=== PATIENT | female | born 1960 | race Caucasian/White ===

== ENCOUNTER 2020-04-25 20:37 | Emergency (ER) | payer BC, SELFPAY ==
--- NOTE | ~2020-04-25 | XR_ITS ---
XR thoracic spine 3V 04/25/2020 22:20 Indication: Mid back pain Procedure: 3 views of the thoracic spine Comparison: No prior studies for comparison. Findings: Mild dextrocurvature of the thoracic spine. Vertebral body heights are maintained. No acute fracture or traumatic malalignment. Pedicles intact. No paraspinal soft tissue abnormality. Impression: 1: No acute abnormality of the thoracic spine. Reviewed, dictated and finalized at location A. Impression: 1: No acute abnormality of the thoracic spine.
--- NOTE | ~2020-04-25 | XR_ITS ---
XR lumbar spine 2-3V 04/25/2020 22:20 Indication: Low back pain Procedure: 3 views lumbar spine Comparison: No prior studies for comparison. Findings: There is mild superior endplate compression deformity of L1, age indeterminate. No signific ant disc narrowing. No evidence for spondylolisthesis. There are cholecystectomy clips. Impression: 1: Mild superior endplate compression deformity of L1, age indeterminate. Reviewed, dictated and finalized at location A. Impression: 1: Mild superior endplate compression deformity of L1, age indeterminate.
[2020-04-25 20:44] VITALS: BP 153/83; PULSE 75; RESP 15; TEMP 37.1; O2SAT 99
[2020-04-25 21:46] LABS: Add Urine Microscopic? YES; Appearance Urine Clear (Clear); Bacteria Urine Trace /hpf; Bilirubin Urine Negative (Negative); Blood Urine Negative (Negative); Color Urine Colorless (Yellow); Glucose Urine UA Negative (Negative); Ketones Urine Negative (Negative); Leukocyte Esterase Ur 2+ LEU/UL (Negative); Mucus Urine Rare /lpf; Nitrate Urine Negative (Negative); Protein Urine Negative (Negative); RBC Urine 0-2 /hpf (0-2); Specific Grav Ur 1.005 (1.001-1.035); Squamous Epithelial Cell Urine Rare /hpf (Few); Urobilinogen Urine Negative mg/dL (<2.0)
--- NOTE | 2020-04-25 23:21 | ED.BACK ---
HPI - Back Pain/Injury General Chief Complaint: Back Pain/Injury Stated Complaint: flank pain Time Seen by Provider: 04/25/20 21:37 History of Present Illness HPI Narrative: Patient is a 59-year-old female who presents ER with back pain. Reports she has some chronic back pain for which she sees a chiropractor for and she has been getting adjustments. She also has history of a small disc herniation in her upper thoracic spine that did not require intervention. She has no new trauma to her back and no exacerbating symptoms such as heavy lifting. Reports over the last couple days she has some right low back pain that radiates down her right leg when she sits down. It is better when she stands up. She has not been taking pain medication. Reports also has occasional bloating in her upper abdomen and pain between her scapulas bilaterally. No exertional component. No chest pain. Occasionally will have burning along her rib cage bilaterally. Denies saddle anesthesia or urinary/fecal incontinence. Related Data Allergies Allergy/AdvReac Type Severity Reaction Status Date / Time No Known Allergies Allergy Verified 11/11/12 09:55 Review of Systems Review of Systems: All systems reviewed & are unremarkable except as noted in HPI and below Constitutional: Constitutional: Denies fever(s) and Denies weakness ENT: Denies nasal congestion and Denies sore throat Cardiovascular: Cardiovascular: Denies chest pain, Denies rapid heart rate and Denies radiating jaw, neck or arm pain Respiratory: Respiratory: Denies cough and Denies dyspnea Gastrointestinal: Gastrointestinal: Denies abdominal pain, Reports bloating, Denies nausea and Denies vomiting Musculoskeletal: Musculoskeletal: Reports back pain and Denies muscle cramps Neurologic: Denies focal weakness and Reports numbness PMFSH Past Medical History Medical History (Updated 04/25/20 @ 23:34 by Rc Joshi MD) Anxiety Depression Herniated disc Surgical History Surgical History (Updated 04/25/20 @ 23:27 by Rc Joshi MD) History of cholecystectomy History of inguinal hernia repair Social History Social History Gender identity (if verbalized by the patient): Female Exam Narrative: Exam Narrative: GENERAL: Well-appearing, well-nourished, and in no acute distress. HEAD: Normocephalic, atraumatic. ENT: Mucous membranes moist. CHEST: Clear to auscultation. No respiratory distress. No evidence of shingles chest wall. HEART: Regular rate and rhythm. Normal peripheral pulses. ABDOMEN: Soft, nontender, nondistended. BACK: No reproducible midline tenderness of the thoracic or lumbar spine. No reproducible paraspinal muscular tenderness of the thoracic or left lumbar spine. There is mild discomfort near L5/S1 in the right paraspinal musculature without overt spasm. No visual evidence of trauma. EXTREMITIES: Normal range of motion. No edema. NEURO: Alert and oriented x3. Course Course Emergency Course: Informed of results. Discharge home with Medrol Dosepak and antispasmodics. Recommend follow-up with her PCP and possible need for MRI. Vital Signs Vital signs: Vital Signs Temperature 98.8 F 04/25/20 20:44 Pulse Rate 75 04/25/20 20:44 Respiratory Rate 15 04/25/20 20:44 Blood Pressure 153/83 H 04/25/20 20:44 Pulse Oximetry 99 04/25/20 20:44 Temperature 98.8 F 04/25/20 20:44 Pulse Rate 75 04/25/20 20:44 Respiratory Rate 15 04/25/20 20:44 Blood Pressure 153/83 H 04/25/20 20:44 Pulse Oximetry 99 04/25/20 20:44 MDM - Back Pain/Injury Lab Data Labs: Lab Results 04/25/20 Range/Units 21:36 Urine Color Colorless (Yellow) Urine Appearance Clear (Clear) Urine pH 6.0 (5.0-9.0) Ur Specific [place] 1.005 (1.001-1.035) Urine Protein Negative (Negative) mg/dL Urine Glucose (UA) Negative (Negative) mg/dL Urine Ketones Negative (Negative) mg/dL Ur Blood (Man) Negative (Negative) Urine
== END 2020-04-25 23:42 | disposition home or self-care (01) ==
PROVIDERS: Emergency Provider Emergency Medicine; PCP Nurse Practitioner Adult Health
DX: M54.41 Lumbago with sciatica, right side (principal)
CPT/HCPCS: 72072; 72100; 81001; 87086; 99283

== ENCOUNTER 2021-02-12 15:41 | Emergency (ER) | payer BC, SELFPAY ==
[2021-02-12 15:46] VITALS: BP 133/77; PULSE 77; RESP 16; TEMP 36.4; O2SAT 98
--- NOTE | 2021-02-12 16:06 | ED.WOUNDLAC ---
HPI - Wound/Laceration General Chief Complaint: Wound/Laceration Stated Complaint: spider bite Time Seen by Provider: 02/12/21 15:57 History of Present Illness HPI narrative: Patient is a 60-year-old female who presents ER with concerns for possible bite to her right shoulder. Patient noticed bumps yesterday minutes progressed today to 2 different areas. One area on her right arm looks like it has a target so she is concerned she had a spider. No fevers or chills or sweats. No drainage. The areas are itchy. She has no blisters or ulcers. No extension around the chest or down the arm. Related Data Home Medications Medication Instructions Recorded Confirmed amlodipine 02/12/21 02/12/21 Allergies Allergy/AdvReac Type Severity Reaction Status Date / Time No Known Allergies Allergy Verified 02/12/21 15:49 Review of Systems Constitutional: Constitutional: Denies chills and Denies fever(s) Integumentary/Breasts: Skin/Breast: Reports erythema, Reports rash and Denies skin ulcer PMFSH Past Medical History Medical History (Updated 02/12/21 @ 16:13 by Rc Joshi MD) Anxiety Depression Herniated disc Surgical History Surgical History (Updated 04/25/20 @ 23:27 by Rc Joshi MD) History of cholecystectomy History of inguinal hernia repair Social History Social History Gender identity (if verbalized by the patient): Female Exam Narrative: Exam Narrative: GENERAL: Well-appearing, well-nourished, and in no acute distress. HEAD: Normocephalic, atraumatic. EXTREMITIES: Normal range of motion. No edema. SKIN: Warm, dry. Follicular irritation to the right shoulder and 5 different spots. Largest area is 1/2 cm by half centimeter with slight redness. No fluctuant abscess. Right arm with 1 small irritated hair follicles well but does have some redness extending outwards but is nontender and not indurated. NEURO: Alert and oriented x3. PSYCH: Normal mood and affect. Course Course Emergency Course: No evidence of shingles. Will treat as folliculitis with oral and topical antibiotics. Patient can use bacitracin at home and will give her Keflex. Vital Signs Vital signs: Vital Signs Temperature 97.6 F 02/12/21 15:46 Pulse Rate 77 02/12/21 15:46 Respiratory Rate 16 02/12/21 15:46 Blood Pressure 133/77 02/12/21 15:46 Pulse Oximetry 98 02/12/21 15:46 Temperature 97.6 F 02/12/21 15:46 Pulse Rate 77 02/12/21 15:46 Respiratory Rate 16 02/12/21 15:46 Blood Pressure 133/77 02/12/21 15:46 Pulse Oximetry 98 02/12/21 15:46 Discharge Plan Discharge Clinical Impression: Folliculitis Patient Disposition: Home, Self-Care Condition: Stable Instructions: Antibiotic Form, Folliculitis (ED) Additional Instructions: Return to the ER if you have worsening pain, your bump is enlarging, you have fever over 100.4 ?F, you have additional concerns. Prescriptions: New cephalexin 500 mg capsule 500 mg PO Q12H Qty: 20 RF: 0 No Action amlodipine 5 mg tablet RF: 0 Follow-up/Referrals: Evangelist,BRYANT Joe [Primary Care Provider] - 1 Week
== END 2021-02-12 16:53 | disposition home or self-care (01) ==
LOC: ANHED 16:36
PROVIDERS: Emergency Provider Emergency Medicine; PCP Nurse Practitioner Adult Health
DX: L73.9 Follicular disorder, unspecified (principal)
CPT/HCPCS: 99283

== ENCOUNTER 2022-01-24 09:10 | Outpatient (CLI) | payer BC, SELFPAY ==
--- NOTE | 2022-01-24 | EST_ITS ---
Patient Info Name: Aissatou Douglass Age: 61 years : 1960 Gender: Female Ht: 63 in Wt: 147 lbs BSA: 1.74 m2 HR: 65 bpm BP: 157 / 90 mmHg Heart Rhythm: Sinus Rhythm Exam Date: 01/24/2022 10:57 AM Exam Location: [facility] Stress Patient Status: Outpatient Admit Date: 01/24/2022 Staff Ordering Physician: Evangelist, Tatyana HURTADO Attending Provider: Evangelist, Tatyana HURTADO Exercise Technologist: Luz Maria Martinez CT Exercise Physician: Mark Wills DO Exam Type: CA stress test treadmill w NM Study Info Indications R07.9 - Chest pain, unspecified A regadenoson stress test was performed. Summary 1. 1. Negative Edin exercise stress test for ischemic ST changes by ECG criteria. 2. 2. Good functional capacity, achieving 11 METs of workload. 3. 3. Baseline hypertension. 4. 4. Appropriate HR response to exercise. 5. 5. Appropriate HR recovery at 1 minute post exercise. 6. 6. Nuclear scan to follow and will be reported separately. Please correlate with it. 7. 7. Patient informed of the above results. Protocol: [place]in Stress ECG Details Stage: REST Duration (min): 4 min : 39 sec Speed (mph): 0.0 Grade (%): 0 HR (bpm): 63 SBP (mmHg): 157 DBP (mmHg): 97 METS: --- Stage: REST Duration (min): 7 min : 14 sec Speed (mph): 0.0 Grade (%): 0 HR (bpm): 70 SBP (mmHg): 157 DBP (mmHg): 97 METS: --- Stage: STAGE 1 Duration (min): 1 min : 0 sec Speed (mph): 1.7 Grade (%): 10 HR (bpm): 95 SBP (mmHg): 157 DBP (mmHg): 97 METS: --- Stage: STAGE 1 Duration (min): 2 min : 0 sec Speed (mph): 1.7 Grade (%): 10 HR (bpm): 112 SBP (mmHg): 157 DBP (mmHg): 97 METS: --- Stage: STAGE 1 Duration (min): 3 min : 0 sec Speed (mph): 1.7 Grade (%): 10 HR (bpm): 114 SBP (mmHg): 176 DBP (mmHg): 89 METS: --- Stage: STAGE 2 Duration (min): 1 min : 0 sec Speed (mph): 2.5 Grade (%): 12 HR (bpm): 118 SBP (mmHg): 176 DBP (mmHg): 89 METS: --- Stage: STAGE 2 Duration (min): 2 min : 0 sec Speed (mph): 2.5 Grade (%): 12 HR (bpm): 115 SBP (mmHg): 170 DBP (mmHg): 88 METS: --- Stage: STAGE 2 Duration (min): 3 min : 0 sec Speed (mph): 2.5 Grade (%): 12 HR (bpm): 116 SBP (mmHg): 170 DBP (mmHg): 88 METS: --- Stage: STAGE 3 Duration (min): 1 min : 0 sec Speed (mph): 3.4 Grade (%): 14 HR (bpm): 124 SBP (mmHg): 183 DBP (mmHg): 90 METS: --- Stage: STAGE 3 Duration (min): 2 min : 0 sec Speed (mph): 3.4 Grade (%): 14 HR (bpm): 126 SBP (mmHg): 183 DBP (mmHg): 90 METS: --- Stage: STAGE 3 Duration (min): 3 min : 0 sec Speed (mph): 3.4 Grade (%): 14 HR (bpm): 142 SBP (mmHg): 179 DBP (mmHg): 97 METS: --- Stage: STAGE 4 Duration (min): 0 min : 35 sec Speed (mph): 4.2 Grade (%): 16 HR (bpm): 147
--- NOTE | ~2022-01-24 | NM_ITS ---
EXAMINATION: NM stress w perf spect multi DATE: 01/24/2022 12:21 INDICATION: Atypical chest pain TECHNIQUE: Rest images were obtained following intravenous administration of 9.9 mCi Tc99m tetrofosmi n (AssertID). The patient performed an exercise activity. At peak exercise, 29.4 mCi Tc99m tetrofosmin ([employer]) was administered intravenously, and stress images were obtained. Data was reconstructed in to short axis and horizontal and vertical long axis SPECT images. Gated SPECT images were also obtain ed. COMPARISON: None. FINDINGS: There is normal left ventricular perfusion without definite evidence of reversible or fixed perfusion abnormality to suggest ischemia or infarction. There is normal left ventricular chamber size, wall motion and ejection fraction. Left ventricular ejection fraction measures >70%. IMPRESSION: 1. Normal myocardial perfusion at rest and during stress. 2. Left ventricular ejection fraction measuring >70%. Reviewed, dictated and finalized at location B.
== END 2022-01-24 09:11 | disposition home or self-care (01) ==
PROVIDERS: PCP Nurse Practitioner Adult Health; Visit Provider Nurse Practitioner Adult Health
DX: R07.89 Other chest pain (principal)
CPT/HCPCS: 78452; 93017; A9502

== ENCOUNTER 2023-04-29 10:03 | Outpatient (CLI) | payer OTHER, SELFPAY ==
[2023-04-29 18:36] LABS: Basophils Percent Auto 0.6 % (0.2-1.2); Eosinophils Absolute Auto 0.1 K/mm3 (0-0.3); Eosinophils Percent Auto 1.8 % (0-4.4); Hematocrit 40.4 % (37.0-47.0); Immature Granulocyte Absolute 0.02 K/mm3 (0.00-0.031); Immature Granulocyte Percent A 0.4 % (0-0.5); Lymphocytes Absolute Auto 2.53 K/mm3 (0.9-3.2); Lymphocytes Percent Auto 46.6 % (18.3-44.2); Mean Corpuscular HGB Conc 32.2 g/dl (32-36); Mean Corpuscular Hemoglobin 31.7 pg (26-34); Mean Corpuscular Volume 98.5 fl (80-100); Mean Platelet Volume 9.7 fl (7.4-10.4); Monocytes Absolute Auto 0.5 K/mm3 (0.1-0.6); Neutrophils Absolute Auto 2.3 K/mm3 (1.3-6.7); Neutrophils Percent Auto 41.6 % (45.5-73.1); Platelet Count Result 301 k/mm3 (150-375); Red Cell Distribution Width 13.1 % (11.5-14.5); White Blood Count 5.4 K/mm3 (4.5-10.0)
[2023-04-29 19:17] LABS: Alanine Aminotransferase 20 U/L (6-35); Albumin Level 4.7 g/dL (3.5-5.1); Alkaline Phosphatase 80 U/L (38-126); Anion Gap 4 mmol/L (8-16); Aspartate Amino Transferase 67 U/L (14-36); Bilirubin,Total 0.7 mg/dL (0.2-1.3); Blood Urea Nitrogen 17 mg/dL (7-17); Calcium 9.3 mg/dL (8.4-10.2); Carbon Dioxide 32 mmol/L (22-30); Chloride 101 mmol/L (98-107); Cholesterol 226 mg/dL (0-200); Estimated Glomerular Filt Rate > 60; Glucose 82 mg/dL (65-110); HDL Direct 104 mg/dL; Potassium 4.2 mmol/L (3.4-5.0); Sodium 137 mmol/L (137-145); Triglycerides 70 mg/dL (<150)
[2023-04-29 19:29] LABS: LDL Cholesterol Direct 88 mg/dL
[2023-04-29 20:19] LABS: Free T4 Free Thyroxine 0.85 ng/mL (0.78-2.19)
[2023-04-29 20:25] LABS: Folic Acid > 20.0 ng/mL (2.76->20)
[2023-05-02 04:39] LABS: Thyroid Peroxidase Antibodies <1 IU/mL (<9)
== END 2023-04-29 10:04 | disposition home or self-care (01) ==
LOC: ANHBWCLAB 10:05
PROVIDERS: PCP Nurse Practitioner Adult Health; Visit Provider Nurse Practitioner Adult Health
DX: L65.9 Nonscarring hair loss, unspecified (principal); I10 Essential (primary) hypertension; Z00.00 Encounter for general adult medical examination without abnormal findings
CPT/HCPCS: 36415; 80053; 80061; 82607; 82746; 84439; 84443; 85025; 86376

== ENCOUNTER 2024-02-20 09:29 | Outpatient (CLI) | payer OTHER, SELFPAY ==
--- NOTE | ~2024-02-20 | XR_ITS ---
EXAMINATION: XR chest 2V 02/20/2024 09:50 INDICATION: Chest pain PROCEDURE: 2 view chest COMPARISON: 12/17/2011 FINDINGS: The lungs are clear. The cardiomediastinal silhouette is within normal limits. There are no pleural effusions. There is no pneumothorax suspected. IMPRESSION: 1: NO ACUTE CARDIOPULMONARY DISEASE. Reviewed, dictated and finalized at location B.
[2024-02-20 19:09] LABS: Hematocrit 41.7 % (37.0-47.0); Mean Corpuscular HGB Conc 31.2 g/dl (32-36); Mean Corpuscular Volume 99.3 fl (80-100); Mean Platelet Volume 10.1 fl (7.4-10.4); Platelet Count Result 315 k/mm3 (150-375); Red Cell Distribution Width 13.5 % (11.5-14.5); White Blood Count 6.8 K/mm3 (4.5-10.0)
[2024-02-20 19:22] LABS: Alanine Aminotransferase 19 U/L (6-35); Albumin Level 4.7 g/dL (3.5-5.1); Alkaline Phosphatase 73 U/L (38-126); Anion Gap 6 mmol/L (4-12); Aspartate Amino Transferase 56 U/L (14-36); Bilirubin,Total 0.6 mg/dL (0.2-1.3); Blood Urea Nitrogen 16 mg/dL (7-17); Calcium 9.7 mg/dL (8.4-10.2); Carbon Dioxide 30 mmol/L (22-30); Chloride 103 mmol/L (98-107); Cholesterol 213 mg/dL (0-200); Estimated Glomerular Filt Rate > 60; Glucose 92 mg/dL (65-110); HDL Direct 83 mg/dL; Sodium 139 mmol/L (137-145); Triglycerides 78 mg/dL (<150)
[2024-02-20 19:28] LABS: Appearance Urine Clear (Clear); Bilirubin Urine Negative (Negative); Blood Urine Negative (Negative); Color Urine Yellow (Yellow); Glucose Urine UA Negative (Negative); Ketones Urine Negative (Negative); Leukocyte Esterase Ur Negative LEU/UL (Negative); Nitrate Urine Negative (Negative); Protein Urine Negative (Negative); Urobilinogen Urine 0.2 mg/dL (<2.0); pH Urine 6.5 (5.0-9.0)
[2024-02-20 19:29] LABS: Add Urine Microscopic? NO
[2024-02-20 19:35] LABS: LDL Cholesterol Direct 107 mg/dL
[2024-02-20 20:36] LABS: Folic Acid > 20.0 ng/mL (2.76->20)
== END 2024-02-20 09:30 | disposition home or self-care (01) ==
PROVIDERS: PCP Nurse Practitioner Adult Health; Visit Provider Nurse Practitioner Adult Health
DX: Z13.9 Encounter for screening, unspecified (principal); R39.9 Unspecified symptoms and signs involving the genitourinary system; R07.89 Other chest pain
CPT/HCPCS: 36415; 71046; 80053; 80061; 81003; 82607; 82746; 84443; 85027

== ENCOUNTER 2024-04-09 10:14 | Outpatient (CLI) | payer OTHER, SELFPAY ==
--- NOTE | ~2024-04-09 | US_ITS ---
EXAMINATION: US pelvic complete w TV INDICATION: Pelvic pain Comparison:No prior studies for comparison. TECHNIQUE: Multiple transabdominal and endovaginal sonographic images of the pelvis performed. FINDINGS: The uterus measures 5.2 x 3.9 x 2.2 cm. There is a small uterine fibroid posteriorly measur ing 1 cm. There are calcifications of the cervix. The endometrial complex measures 5 mm. The ovaries are not visualized. There is no free fluid in the pelvis. There are no abnormal masses seen on either side. IMPRESSION: 1. Small uterine fibroid posteriorly measuring 1 cm. 2: Thickened endomtrial complex. The differential diagnosis includes endometrial hyperplasia, polyp a nd carcinoma. Biopsy is recommended. Reviewed, dictated and finalized at location B. IMPRESSION: 1. Small uterine fibroid posteriorly measuring 1 cm. 2: Thickened endomtrial complex. The differential diagnosis includes endometria l hyperplasia, polyp and carcinoma. Biopsy is recommended.
== END 2024-04-09 10:15 ==
PROVIDERS: PCP Nurse Practitioner Adult Health; Visit Provider Student in an Organized Health Care Education/Training Program
DX: R10.2 Pelvic and perineal pain (principal); D25.9 Leiomyoma of uterus, unspecified
CPT/HCPCS: 76830; 76856

== ENCOUNTER 2024-05-25 13:48 | Outpatient (CLI) | payer OTHER, SELFPAY ==
--- NOTE | ~2024-05-25 | XR_ITS ---
XR abdomen/kub 1V Ordering provider: Tatyana Blanca APRN History: . R14.0 - Abdominal distension (gaseous) . Comparison: None. FINDINGS: BOWEL: Nonobstructive bowel gas pattern. ORGANOMEGALY: None. SIGNIFICANT PATHOLOGIC CALCIFICATIONS: None. OTHER: No free air is seen under the diaphragm. IMPRESSION: NO ACUTE ABDOMINAL FINDINGS. Reviewed, dictated and finalized at location A.
== END 2024-05-25 13:49 | disposition home or self-care (01) ==
LOC: ANHBWCIMG 13:52
PROVIDERS: PCP Nurse Practitioner Adult Health; Visit Provider Nurse Practitioner Adult Health
DX: R14.0 Abdominal distension (gaseous) (principal)
CPT/HCPCS: 74018

== ENCOUNTER 2025-03-06 08:54 | Emergency (ER) | payer OTHER, SELFPAY ==
--- OUTSIDE RECORDS SUMMARY | 2025-03-06 08:57 | XMS_ITS | Clinical Summary ---
Author Organization [facility] Address [address] [place] [address] Care Team Providers Care Campground Caretaker Name Role Phone Olesya Sweeney MD Primary Care Provider Source Comments [facility],non-owned Affiliates and Associated Physician Practices is amultiple site organization consisting of ambulatory clinics and hospital sitesin [place], [place], [place] and [place]. This disclosure is being madepursuant to the Care Everywhere program and may not contain all information available regarding this patient. Last updated 18.[facility] Social History Tobacco Use Types Packs/Day Years Used Date Smoking Tobacco: Never Assessed Comments Unknown Sex and Gender Information Value Date Recorded Sex Assigned at Not on file Legal Sex Female 3:43 PM CDT Gender Identity Not on file Sexual Orientation Not on file Plan of Treatment Health Maintenance Due Date Last Done Comments COLOGUARD (AGES 45-75) - COL ON CA SCREENING 1960 COLON MONITORING 1960 COLONOSCOPY - COLON CA SCREENING 1962 CT COLONOGRAPHY - COLON CA SCREENING 1960 Colorectal Cancer Screening 1960 FIT - COLON CA SCREENING 1960 FLEX SIG - COLON CA SCREENING 1960 LIPID TESTING 1960 MAMMOGRAM 1960 PAP SMEAR 1960 HIV SCREENING 1977 HEPATITIS C SCREENING 09/26/1980 DTAP/TDAP/TD VACCINES (1 - Tdap) 1981 PNEUMOCOCCAL VACCINE 50+ (1 of 1 - PCV) 2012 ZOSTER VACCINE (1 of 2) 2012 COVID-19 VACCINE (1 - 2023-2 5 season) 2024 DEPRESSION SCREENING 10/21/2024 INFLUENZA VACCINE (Season Ended) 2025 Respiratory Syncytial Virus (RSV) Vaccine Pt: or over 60 yrs (1 - 1-dose 75+ series) 2037 HEPATITIS B VACCINE Aged Out No longe r eligible based on patient's age to complete this topic HIB VACCINE Aged Out No longer eligi ble based on patient's age to complete this topic HPV VACCINE Aged Out No longer eligi ble based on patient's age to complete this topic MENINGOCOCCAL (Group B) VACC INE SHARED DECISION-MAKING Aged Out No longer eligibl e based on patient's age to complete this topic MENINGOCOCCAL GROUPS A/C/Y/W VACCINE Aged Out No longer eligible b ased on patient's age to complete this topic Care Teams Campground Caretaker Relationship Specialty Start Date End Date Olesya Sweeney MD [address] [place] [phone] PCP - General 07/03/22
--- OUTSIDE RECORDS SUMMARY | 2025-03-06 08:57 | XMS_ITS | Referral Summary ---
Author Organization [facility] [address] Address [address] [place] [id number] Care Team Providers Care Instructor Pilot Name Role Phone Tatyana Blanca NP Primary Care Provider [phone] Allergies Active Allergy Reactions Criticality Noted Date Comments Bupropion Other (See comments) Low 05/24/2022 Paroxetine Other (See comments) Low 05/24/2022 Medications amLODIPine (NORVASC) 5 mg tablet amlodipine 5 mg tablet Active escitalopram (LEXAPRO) 10 mg tablet 10 mg daily 6 Active omeprazole (PriLOSEC) 20 mg capsule TAKE 1 CAPSULE BY MOUTH ONCE DAILY FOR 30 DAYS 2 Active valACYclovir (VALTREX) 1 gram tablet Take 2 tabs (2000 mg) 2 times a days for 1 day. 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 Gender Identity Not on file Sexual Orientation Not on file Last Filed Vital Signs Vital Sign Reading Time Taken Comments Blood Pressure 146/88 02/09/2024 3:16 PM CDT Pulse 72 02/09/2024 3:05 PM CDT Temperature 36.7 C (98 F) 02/09/2024 3:05 PM CDT Respiratory Rate 16 02/09/2024 3:05 PM CDT Oxygen Saturation 99% 02/09/2024 3:05 PM CDT Inhaled Oxygen Concentration - - Weight 67.1 kg (148 lb) 02/09/2024 3:05 PM CDT Height 160 cm (5' 3 ) 02/09/2024 3:05 PM CDT Body Mass Index 26.22 02/09/2024 3:05 PM CDT Plan of Treatment Not on file Insurance IDPA Care Teams Instructor Pilot Relationship Specialty Start Date End Date Tatyana Blanca NP [address] [place] [address] [place] [address] PCP - General Nurse Practitioner 05/24/22
--- OUTSIDE RECORDS SUMMARY | 2025-03-06 08:57 | XMS_ITS | Clinical Summary ---
Author Organization [facility] Address [address] [place] [id number] Care Team Providers Care Stock Clipper Name Role Phone Tatyana Blanca BRYANT Primary Care Provider [phone] Family History Medical History Relation Comments Breast Cancer Neg Hx Social History Tobacco Use Types Packs/Day Years Used Date Smoking Tobacco: Never Assessed Comments Unknown Sex and Gender Information Value Date Recorded Sex Assigned at Not on file Legal Sex Female 7:07 PM CDT Gender Identity Not on file Sexual Orientation Not on file Plan of Treatment Health Maintenance Due Date Last Done Comments Cervical Cancer Screening Pa p Smear (Age 30 to 64) Every 3 Years 1960 Colorectal Cancer Screening Colonoscopy (10 Years) 1962 Annual Physical 1965 Hepatitis C 1980 DTaP, Tdap and Td Vaccines ( 1 - Tdap) 1981 Cervical Cancer Screening Pa p with HPV Testing (Age 30 to 64) Every 5 Years 1992 Cervical Cancer Screening wi th HPV 1992 Pneumococcal Vaccine: 50+ Years (1 of 1 - PCV) 2012 Zoster Vaccines (1 of 2) 2012 COVID-19 Vaccine ( - 2023-2 5 season) 2024 Mammogram Screening 01/12/2026 01/13/2024, 07/26/2022, 11/12/2019 RSV Immunization or 60+ Years (1 - 1-dose 75+ series) 2037 Meningococcal B Vaccine Aged Out No l onger eligible based on patient's age to complete this topic Meningococcal Vaccine Aged Out No krzysztof magaly eligible based on patient's age to complete this topic RSV Immunizations Under 20 Months Aged Out No longer eligible b ased on patient's age to complete this topic Procedures Procedure Name Priority Date/Time Associated Diagnosis Comments MG SCREENING W LOGAN EMILY DIGI Routine 01/13/2024 10:49 AM CDT Encounter for screening mammogram for malignant neoplasm of breast from Last 3 Months or Most Recently Relevant to Health Maintenance Results * MG SCREENING W LOGAN EMILY DIGI (01/13/2024 10:49 AM CDT) Anatomical Region Laterality Modality Breast Bilateral Mammography 01/13/2024 4:14 PM CDT Narrative 01/13/2024 4:18 PM CDT EXAMINATION: Digital bilateral screening mammogram with 3-D tomosynthesis EXAM DATE/TIME: 01/13/2024 10:35 AM REASON FOR EXAM: Screening Mammogram COMPARISON: 11/12/2019. Period 07/26/2022 Technique: Digital screening mammography of both breasts was performed in addition to 3-D Tomosynthesis technique. This study was read with the assistance of a computer-aided detection system. Tissue density: There are scattered areas of fibroglandular density. Findings: Stable benign appearing lymph nodes in the upper outer quadrants of both breasts. Benign calcifications. There is no new focal asymmetry, dominant mass lesion, area of skin thickening, or cluster of suspicious appearing calcifications in either breast to suggest malignancy. ===== IMPRESSION: ===== 1. Stable mammographic appearance with no new findings to suggest malignancy in either breast. Assessment: ACR BI-RADS 2 - BENIGN FINDING(S) Recommendation: 1:Routine Screening Bilateral Comments: Ordered By: SUSHIL FREEMAN Interpreted By: Tristian Wheeler, 01/13/2024 4:14 PM us Sushil Freeman MD MAMMO Final Result from Last 3 Months or Most Recently Relevant to Health Maintenance Care Teams Stock Clipper Relationship Specialty Start Date End Date Tatyana Blanca NP [address] [place] [id number] PCP - General NURSE PRACTITIONER 11/12/19
--- OUTSIDE RECORDS SUMMARY | 2025-03-06 08:57 | XMS_ITS | Encounter Summary ---
Author Organization [facility] Address [address] [place] [address] Care Team Providers Care Weed Cooking Operator Name Role Phone Olesya Sweeney MD Primary Care Provider [phone] Encounter Details Date Type Department Care Team (Late st Contact Info) Description 07/03/2022 Lab Requisition [facility] [address] [facility] [place] [address] Sriram Ayala MD [address] [place] [address] Social History Tobacco Use Types Packs/Day Years Used Date Smoking Tobacco: Never Assessed Comments Unknown Sex and Gender Information Value Date Recorded Sex Assigned at Not on file Legal Sex Female 3:43 PM CDT Gender Identity Not on file Sexual Orientation Not on file documented as of this encounter Plan of Treatment Not on file documented as of this encounter Procedures Procedure Name Priority Date/Time Associated Diagnosis Comments DERMATOPATHOLOGY Routine 07/02/2022 12:0 0 AM CDT documented in this encounter Results * DERMATOPATHOLOGY (07/02/2022 12:00 AM CDT) Case Report Dermatopathology Report Case: [id number] Authorizing Provider: Sriram Ayala MD Collected: 07/02/2022 12:00 AM Ordering Location: [facility] Received: 07/03/2022 03:49 PM Pathologist: Gabino Benton MD Specimen: Skin, left shoulder 12:10 PM CDT DERMATOPATHOLOGY LABORATORY Final Diagnosis Specimen A. SKIN, left shoulder: BASAL CELL CARCINOMA (C44.619) (see microscopic description and comment) 2 12:10 PM CDT DERMATOPATHOLOGY LABORATORY Clinical History [facility]. Path# [id number] 2 12:10 PM CDT DERMATOPATHOLOGY LABORATORY Gross Description Specimen A: Received is one formalin filled container labeled with the patient's name and designated left shoulder. The specimen consists of a shave biopsy measuring [id number]. Jar 0. 2 12:10 PM CDT DERMATOPATHOLOGY LABORATORY Microscopic Description Specimen A. SKIN, left shoulder: The specimen consists of aggregates of basaloid cells, located within the superficial dermis, with high nuclear to cytoplasmic ratio and peripheral palisading. COMMENT: The small size of the specimen limits subtyping of the lesion. 2 12:10 PM CDT DERMATOPATHOLOGY LABORATORY Disclaimer An external and internal positive and negative controls are appropriate for the histochemical, immunohistochemical and immunofluorescence stain(s) in this case (if any), except where stated explicitly. The performance characteristics of the stain(s) cited in this report were developed and its performance characteristic determined by the Dermatopathology Laboratory at [facility], directed by Dr. Sancho Benton. These tests need not be, and therefore are not, approved by the [place] Food and Drug Administration. The tests are used for clinical purposes. Billing Codes Specimen Charges Stain Charges 72043 1 2 12:10 PM CDT DERMATOPATHOLOGY LABORATORY Embedded Images 2 12:10 PM CDT DERMATOPATHOLOGY LABORATORY Pathology/Cytolog y TISSUE SPECIMEN FROM SKIN / Unknown 07/02/2022 07/03/2022 3:49 PM CDT Sriram Ayala MD LAB - PATHOLOGY/CYTOLOGY ORDER MEHNAZ Final Result DERMATOPATHOLOGY LABORATORY [facility] - Department of Dermatology [address], [address] [phone] documented in this encounter Visit Diagnoses Not on filedocumented in this encounter Care Teams Weed Cooking Operator Relationship Specialty Start Date End Date Olesya Sweeney MD [address] [id number] PCP - General 07/03/22 documented as of this encounter
--- OUTSIDE RECORDS SUMMARY | 2025-03-06 08:57 | XMS_ITS | Clinical Summary ---
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 Gender Identity Not on file Sexual Orientation Not on file Obstetrics History Last Filed Vital Signs Vital Sign Reading [...] 02/09/2024 3:05 PM CDT Plan of Treatment Health Maintenance Due Date Last Done Comments Breast Cancer Screening-Mammogram 1962 Cervical Cancer Screening 1962 Colon Cancer Screening-Colonoscopy 1962 Depression Screening 1962 Hepatitis C Screening 1962 Hepatitis B Screening 1980 Regular Well Visit/Exam 18-64 1980 Zoster Vaccine (1 of 2) 2012 Covid-19 Vaccine (3 - 2023-2 5 season) 2024 01/14/2021, 12/22/2020 Influenza Vaccine (#1) 2024 DTaP/Tdap/Td Vaccine (3 - Td or Tdap) 03/21/2026 03/21/2016, 07/26/2015 Pneumococcal vaccine <65 Aged Out No longer eligible based on patient's age to complete this topic Insurance IDPA Care Teams Senior Tax Accountant Relationship Specialty Start Date End Date Tatyana Blanca NP [facility] [place] [address] PCP - General Nurse Practitioner 05/24/22
--- OUTSIDE RECORDS SUMMARY | 2025-03-06 08:57 | XMS_ITS | Encounter Summary ---
Author Organization [facility] Address [address] [place] [address] Care Team Providers Care Paint Spray Tender Name Role Phone Tatyana Blanca NP Primary Care Provider [phone] Encounter Details Date Type Department Care Team (Late st Contact Info) Description 06/03/2017 Abstract [facility] CONVERSION [address] [place] [address] , Generic Conversion, Social History Tobacco Use Types Packs/Day Years Used Date Smoking Tobacco: Never Assessed Comments Unknown Sex and Gender Information Value Date Recorded Sex Assigned at Not on file Legal Sex Female 7:07 PM CDT Gender Identity Not on file Sexual Orientation Not on file documented as of this encounter Plan of Treatment Not on file documented as of this encounter Visit Diagnoses Not on filedocumented in this encounter Care Teams Paint Spray Tender Relationship Specialty Start Date End Date Tatyana Blanca NP [address] [place] [address] PCP - General NURSE PRACTITIONER 11/12/19 documented as of this encounter
--- OUTSIDE RECORDS SUMMARY | 2025-03-06 08:57 | XMS_ITS | Data Portability ---
Author Organization [facility] Address [address] [place] [address] Care Team Providers Care Learning Coordinator Name Role Phone [facility] Foreign Language Interpreter Assessment No assessment recorded. Plan of Treatment Reminders Order Date Submit Date Provider Last Modified By Organization Details Last Modified Time Details Appointments None recorded. Lab None recorded. Referral None recorded. Procedures None recorded. Surgeries None recorded. Imaging None recorded. Medication Orders Prometrium 100 mg capsule 2023 024 [facility] [address], [address], [address], 4 13:19:02 Vivelle-Dot 0.0375 mg/24 hr transdermal patch 2023 024 [facility] [address], [address], [address], 4 13:19:04 Estrace 0.5 mg tablet 2023 024 [facility] [address], [address], [address], 4 13:19:04 Estrace 0.01% (0.1 mg/gram) vaginal cream 2023 024 [facility] [address], [address], [address], 13:19:04 Patient TargetsNo targets recorded. Patient InstructionsNo instructions recorded. Reason for Referral None Reported. Procedures Surgical History Date Name Laterality Status Provider Name and Address Organization Details Recorded Time 4 Most Recent Mammogram completed [facility] [employer] 05/21/2024 12:08:16 2 Date of Last Pap Smear completed [facility] [facility] 05/21/2024 12:19:41 3 Date of Last Colonoscopy completed [facility] [employer] 05/21/2024 12:20:40 1 Endometrial Ablation completed [facility] [facility] 05/21/2024 12:33:04 7 ligation of bilateral fallopian tubes completed [facility] [employer] [facility] 05/21/2024 12:34:16 5 LEEP completed Dhaval Lobo MD [address] [place] [address], [phone] [employer] 05/21/2024 13:05:34 1 D & C completed [facility] [employer] 05/21/2024 12:35:18 Colonoscopy completed [facility] [facility] 05/21/2024 12:08:16 Gall bladder completed [facility] [employer] 05/21/2024 12:08:16 C Section completed [facility] [employer] 05/21/2024 12:08:16 hernia repair completed [facility] [employer] 05/21/2024 12:34:45 excision of ganglion cyst completed [facility] [employer] 05/21/2024 12:23:10 Imaging Results None recorded. Procedure Notes None recorded. Medical Equipment None Reported. Allergies No known drug allergies Medications Name Sig Start Date Stop Date Status Note LastModified by Organization Details LastModified Time valacyclovi r 1 gram tablet TAKE 2 TABLETS BY MOUTH TWICE DAILY FOR 1 DAY 05/21 completed Not Available Not Available Not Available Prometrium 100 mg capsule Take 1 capsule every day by oral route. 2023 active Not Available Not Available Not Avai lable amlodipine 5 mg tablet TAKE 1 TABLET BY MOUTH ONCE DAILY active Not Available Not Available No t Available omeprazole 40 mg capsule,del ayed release TAKE 1 CAPSULE BY MOUTH ONCE DAILY 05/21 completed Not Available Not Available Not Available alprazolam 0.25 mg tablet TAKE 1 TABLET BY MOUTH ONCE DAILY NEEDED FOR ANXIETY 2023 active Not Available Not Available Not Avai lable Vivelle-Dot 0.0375 mg/24 hr transdermal patch Apply 1 patch twice a week by transderm al route. 2023 active Not Available Not Available Not Avai lable omeprazole 20 mg capsule,del ayed release TAKE 1 CAPSULE BY MOUTH ONCE DAILY active Not Available Not Available No t Available hydrocortis one 2.5 % topical cream APPLY A THIN FILM OF CREAM TO AFFECTED SKIN TWICE DAILY AND RUB IN GENTLY AND COMPLETEL Y TO EAR NEEDED 05/21 completed Not Available Not Available Not Available mupirocin 2 % topical ointment APPLY OINTMENT TOPICALLY THREE TIMES DAILY 05/21 completed Not Available Not Available Not Available triamcinolo ne acetonide 0.1 % lotion active Not Available Not Available Not Available Estrace 0.5 mg tablet Take 1 tablet twice a week by oral route as directed. 2023 active Not Available Not Available Not Avai lable methylpredn isolone 4 mg tablets in a dose pack active Not Available Not Available Not Available Estrace 0.01% (0.1 mg/gram) vaginal cream Insert 1 g twice a week by vaginal route as directed. 2023 active Not Available Not Available Not Avai lable Vitals Date Recorded Body height Body mass index (BMI) Body weight Systolic blood pressure Diastolic blood pressure Provider Name and Address Organization Details Last Updated DateTime 05/21/2024 160.02 cm 25.8 kg/m2 46457.77 g 118 mm[Hg] 88 mm[Hg] [place] [employer] 12:25:40 Social History Question Answer Notes LastModified by Organizat ion Details LastModified Time Tobacco Smoking Status Never Smoker Sajan mckoy, [employer] 05/21/2024 12:08:16 How Many Years Have You Consumed Alcohol? 40 Information not available 05/21/2024 Are You Blind Or Do You Have Difficulty Seeing? No Information not available 05/21/2024 Are You Deaf Or Do You Have Serious Difficulty Hearing? No Information not available 05/21/2024 What Type Of Diet Are You Following? REGULAR Information not available 05/21/2024 How Many Children Do You Have? 2 Information not available 05/21/2024 Are There Any Occupational Health Risks Where You Work? No Information not available 05/21/2024 What Is Your Relationship Status? Information not available 05/21/2024 Are You Sexually Active? No Information not available 05/21/2024 What Types Of Sporting Activities Do You Participate In? [employer] Information not available 05/21/2024 Sex: Unknown Functional Status Question Answer Note LastModified by Organizat ion Details LastModified Time Do you use any illicit or recreational drugs? No Information not available 05/21/2024 What is your level of alcohol consumption? Occasional Information not available 05/21/2024 Are you currently employed? 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 Occasional Information not available 05/21/2024 Mental Status None recorded. Family History Relationship Description Onset Age of this Age Resolved Age Notes LastModified by Organization Details LastModified Time Mother Malignant neoplasm of lung [email or web address] Not available 2023 12:08:16 Mother Hypertensive disorder [email or web address] Not available 2023 12:08:16 Paternal Grandfather Myocardial infarction [email or web address] Not available 05/21 12:08:16 Father Myocardial infarction [email or web address] Not available 05/21 12:08:16 Medical History Condition Response High Blood Pressure Y Fibroids Y Gynecological History Statement/Question Response Flow Light Date of last HPV 06/14/2022 Date of LMP 02/27/2014 Duration of Flow (days) 0 Most Recent Mammogram 01/13/2024 Current Control Method Ablation Age at Menarche 15 Date of Last Colonoscopy 07/27/2013 Most Recent Bone Density Frequency of Cycle (Q days) Do not have periods Date of Last Pap Smear 06/14/2022 Obstetrics History GPAL:G 3 P 2 0 1 2 Type Value Full Term 2 Spontaneous 1 Living 2 Total 3 Past Encounters Encounter ID Performer Location Encounter Start Date Encounter Closed Date Diagnosis/Indication Diagnosis SNOMED-CT Code Diagnosis ICD10 Code Diagnosis Note [id number] Dhaval Lobo MD [facility] [address] [place] [address] 05/21/2024 11:52:52 05/22/2024 06:58:02 Menopausal symptom 39106715 N95.1 we will try tab of 0.5mg estrace tab vaginally once per week= if neededand wewill do estrace cream 1 gram vaginally once every other week and 1 pea size amount to the labia twice per weekAdditi onal diagnosis detail: Menopausal symptoms Stenosis of cervix 88032 006 N88.2 and asherman sec to ablationAd ditional diagnosis detail: Cervical os stenosis Health Concerns Section Related Observation LastModified by Organization Detai ls LastModified Time None Recorded Concern Status LastModified by Organization Details LastModified Time None Recorded Advance Directives Directive None Recorded Payers Insurance Date Sequence Insurance Name Policy Number Policy Griffith Covered Member ID Griffith Member ID Guarantor Name 05/21/2024 1 [facility] Aissatou Douglass [id number] Aissatou Douglass Notes Date Note Type Note Provider Name and Address Organization Details Recorded Time 05/21/2024 text/html Aissatou 63 y/o i s here in our office to discuss fibroids. She recently had ins change and had to switch providers. She was recently being seen at [facility] by Dr. Jose Conn. She states she had presented to their office with complaints of bloating. He had ordered TVUS and it showed her uterus was (5.2 cm). The U/S showed small uterine fibroid posteriorly measuring 1 cm. They attempted EMB but unable to perform d/t cervical stenosis and pt discomfort. They had recommended D&C hysteroscopy. She denies any PMB and pelvic pain. Has had some constipation problems for her whole life twice a week was last Dhaval Lobo MD [address] [place], [address], [facility] 05/21/2024 22:02:22 OBGyn Episode Ob Episode Information Episode Created Date Number of Fetuses Patient Bloodtype Patient rh Status Prepregnancy Weight lbs Domestic Partner Domestic Partner Phone Father Name Clinical Trial Leader Status 05/21/20 24 1 CLOSED Fetus Data First Name Last Name Admitted to NICU Weight (g) Sex Living Outcome Pediatric Complications Fetus ID Race Codes Race Delivery Type 3713.55 7704 M Full Term [id number] Primary Shay Calculation Initial Shay Date Initial Exam Date Initial Exam Provider Initial Ultrasound Date Last Menstrual Period Date Ultra Sound Weeks Gestation 0 Eighteen To Twenty Week Shay Update Ultra Sound Date Fundal Height At Umbil Quickening Date Ultra Sound Latest Weeks Gestation Final Shay Confirmed By Final Shay Confirmed Date Final Shay Date Ultra Sound Latest Days Gestation 0 0 Menstrual History Last Menstrual Date Menses Monthly On Bcp Conception Prior Menses Frequency Hcg Plus Date Menarche Onset Age Delivery Information Delivery Date Delivery Type Labor Anesthesia Weeks Gestation Incision Type Labor Labor Length Hrs Delivered By Post Complications Tubal Sterilization Discharge Date Comments 1 Discharge Information Feeding Method Contraceptive Method Maternal HG B and HCT Levels Ob Episode Information Episode Created Date Number of Fetuses Patient Bloodtype Patient rh Status Prepregnancy Weight lbs Domestic Partner Domestic Partner Phone Father Name Clinical Trial Leader Status 05/21/20 24 1 CLOSED Fetus Data First Name Last Name Admitted to NICU Weight (g) Sex Living Outcome Pediatric Complications Fetus ID Race Codes Race Delivery Type 3713.55 7704 F Full Term [id number] Shay Calculation Initial Shay Date Initial Exam Date Initial Exam Provider Initial Ultrasound Date Last Menstrual Period Date Ultra Sound Weeks Gestation 0 Eighteen To Twenty Week Sahy Update Ultra Sound Date Fundal Height At Umbil Quickening Date Ultra Sound Latest Weeks Gestation Final Shay Confirmed By Final Shay Confirmed Date Final Shay Date Ultra Sound Latest Days Gestation 0 0 Menstrual History Last Menstrual Date Menses Monthly On Bcp Conception Prior Menses Frequency Hcg Plus Date Menarche Onset Age Delivery Information Delivery Date Delivery Type Labor Anesthesia Weeks Gestation Incision Type Labor Labor Length Hrs Delivered By Post Complications Tubal Sterilization Discharge Date Comments 7 Discharge Information Feeding Method Contraceptive Method Maternal HG B and HCT Levels
[2025-03-06 09:43] VITALS: BP 146/87; PULSE 74; RESP 18; TEMP 36.8; O2SAT 100
--- NOTE | 2025-03-06 09:52 | ED.GENADULT ---
HPI - General Adult General Chief complaint: Upper Respiratory Infection Stated complaint: Sore throat, ears, headache Time Seen by Provider: 03/06/25 09:53 Source: patient Mode of arrival: ambulatory Limitations: no limitations History of Present Illness HPI narrative: 64-year-old female patient presents to the [facility] with complaints of ear fullness and pressure to the head. Patient states she is had a little bit of congestion and a mild cough for the past 4 days. Denies any chest pain or shortness of breath. Denies fevers body aches or chills. Patient states she has tried taking some vprh-ote-rvyikon Mucinex before bed Related Data Allergies Allergy/AdvReac Type Severity Reaction Status Date / Time No Known Allergies Allergy Verified 03/06/25 09:42 Review of Systems Review of Systems: CONSTITUTIONAL: Denies fever, chills, or sweats. EYES: Denies visual changes, redness, or discharge. ENT: Positive rhinorrhea, congestion, sore throat, positive left otalgia. CARDIOVASCULAR: Denies chest pain, palpitations, or edema. RESPIRATORY: Denies cough or dyspnea. GASTROINTESTINAL: Denies abdominal pain, nausea, vomiting, or diarrhea. GENITOURINARY: Denies dysuria or hematuria. SKIN: Denies rash or itching. MUSCULOSKELETAL: Denies back pain, joint pain, or myalgia. NEUROLOGIC: positive headache, denies numbness, or weakness. PSYCHIATRIC: Denies anxiety or depression. [facility] Past Medical History Medical History Depression Anxiety Herniated disc Surgical History Surgical History History of tubal ligation History of endometrial ablation History of gynecologic surgery hscope d&C 2000 LEEP History of inguinal hernia repair History of cholecystectomy Family History Family History Father No problems noted. Mother No problems noted. Sibling No problems noted. Social History Social History Smoking status: Never smoker Alcohol intake: current Substance use: never Substance use type: does not use Lack of Transportation: No Lack of Food: Never True Current Housing: I Have Housing Concerned About Future Housing: No Difficulty Paying Gas/Electric Bills: No Difficulty Paying for Meds: No Currently Unemployed: No Education: Trade/Vocational Certificate Difficulty w/ Childcare or Family Care: No Living arrangements: with family Occupation/Education: occupation Gender identity (if verbalized by the patient): Female Sexual Orientation (if Verbalized by the Patient): Straight or Heterosexual Comments At the time of my signature I agree with nursing past medical history, surgical, social, and family history. There is no relevant family history pertinent to the presenting complaint. Exam Narrative: GENERAL: Well-appearing, well-nourished, and in no acute distress. HEAD: Normocephalic, atraumatic. EYES: PERRLA and EOMI. ENT: Nares with erythema edema noted to the left near, no active rhinorrhea or epistaxis. Mucous membranes moist. posterior pharynx with some postnasal drip no tonsillar enlargement, no exudates or lesions present. the left TM is unable to be visualized due to cerumen impaction. The right TM appears normal with no foreign bodies noted to the canal. NECK: Supple. No lymphadenopathy CHEST: Clear to auscultation. No respiratory distress. HEART: Regular rate and rhythm. No murmur heard. Normal peripheral pulses. ABDOMEN: Soft, nontender, nondistended, normal active bowel sounds. EXTREMITIES: Normal range of motion. No edema. SKIN: Warm, dry, no rash. NEURO: No focal deficits. Alert and oriented x3. Course Course Level of Care: Express Care Visit Vital Signs Vital signs: Vital Signs Temperature 36.8 C 03/06/25 09:43 Pulse Rate 74 03/06/25 09:43 Respiratory Rate 18 03/06/25 09:43 Blood Pressure 146/87 H 03/06/25 09:43 Pulse Oximetry 100 03/06/25 09:43 Oxygen Delivery Room Air 03/06/25 09:43 Temperature 36.8 C 03/06/25 09:43 Pulse Rate 74 03/06/25 09:43 Respiratory Rate 18 03/06/25 09:43 Blood Pressure 146/87 H 03/06/25 09:43 Pulse Oximetry 100 03/06/25 09:43 Oxygen Delivery Room Air 03/06/25 09:43 Vital signs reviewed. The patient has been informed that they may have pre-hypertension or Hypertension based on a BP reading in the department. I recommend that the patient call the primary care provider listed on their discharge instructions or a physician of their choice this week to arrange follow up for further evaluation of possible pre-hypertension or Hypertension Medical Decision Making MDM Narrative Medical decision making narrative: Discussed with patient that she does have some ear wax impaction to the left ear which could be causing the sensation of the fullness. Offered to disimpacted today in the clinic however patient states she has to be at work and in 30 minutes and cannot wait. Discussed with patient she can get some bnby-lyd-wnijpit Debrox to help disimpact the earwax. Also recommended that patient use [id number] antihistamine such as Zyrtec, Claritin or Adore As well as a Flonase to help with pressure and allergy issues.. Today strep test was negative but we will send to lab for a culture. Patient verbalized understanding denies any other questions or concerns at this time. Differential Diagnosis Differential Diagnosis: Differential diagnosis: Allergic rhinitis, chronic sinusitis, tonsillitis, acute sinusitis, infectious mononucleosis, seasonal influenza, pertussis, diphtheria, meningococcal disease, viral syndrome, viral bronchitis, RSV, COVID-19 Vital Signs Vital Signs: Vital Signs Temperature 36.8 C 03/06/25 09:43 Pulse Rate 74 03/06/25 09:43 Respiratory Rate 18 03/06/25 09:43 Blood Pressure 146/87 H 03/06/25 09:43 Pulse Oximetry 100 03/06/25 09:43 Oxygen Delivery Room Air 03/06/25 09:43 Temperature 36.8 C 03/06/25 09:43 Pulse Rate 74 03/06/25 09:43 Respiratory Rate 18 03/06/25 09:43 Blood Pressure 146/87 H 03/06/25 09:43 Pulse Oximetry 100 03/06/25 09:43 Oxygen Delivery Room Air 03/06/25 09:43 Lab Data Labs: Lab Results 03/06/25 Range/Units 09:54 POC Grp A Strep Screen Negative (Negative) Critical Care Time Critical Care Time Critical Care Time: No Discharge Plan Discharge Clinical Impression: Viral URI Allergic rhinitis Qualifiers: Allergic rhinitis trigger: unspecified Allergic rhinitis seasonality: seasonal Qualified Code(s): J30.2 - Other seasonal allergic rhinitis Cerumen impaction Qualifiers: Laterality: left Qualified Code(s): H61.22 - Impacted cerumen, left ear Patient Disposition: Home Condition: Stable Instructions: Antibiotic Form, Viral Syndrome (ED) Additional Instructions: Viral illness may last between 7-12days; antibiotic is NOT recommended at this time. Recommend antihistamine such as Benadryl at night time and Claritin/Zyrtec/Adore during the day Cough syrup may cause drowsiness; avoid driving or take it at night time. Also, recommend symptomatic treatment includes: rest, fluids, and increase humidity of the air at home. Recommend Acetaminophen or nonsteroidal anti-inflammatory agents (NSAIDs) as directed in the bottle to reduce fever and/pain/headache. Avoid smoking/second-hand smoke. Limit visits to areas with large crowds. Please schedule a follow-up visit with your personal physician for further evaluation and treatment within 3-5days. Including recheck and discussion of your blood pressure. If your symptoms persist, change or worsen significantly before you can contact your personal physician then please, without delay, go to the emergency department for further evaluation. Patient Language: Faroese Prescriptions: No Action omeprazole 40 mg capsule,delayed release(DR/EC) 40 mg PO DAILY Qty: 90 3RF alprazolam 0.25 mg tablet 0.25 mg PO DAILY PRN (Reason: anxiety) Qty: 20 0RF amlodipine 5 mg tablet See Rx Instructions .ROUTE .COMPLEX Qty: 90 3RF Dose Instruction: Take 1 tablet by mouth once daily Rx Instructions: Take 1 tablet by mouth once daily Follow-up/Referrals: UNKNOWN,DOCTOR [Primary Care Provider] - Time of Disposition: 10:01
[2025-03-06 09:56] LABS: EDSTREPNEGPOS1 Negative (Negative)
== END 2025-03-06 10:02 | disposition home or self-care (01) ==
PROVIDERS: Emergency Provider Nurse Practitioner Family
DX: J06.9 Acute upper respiratory infection, unspecified (principal); J30.2 Other seasonal allergic rhinitis; H61.22 Impacted cerumen, left ear; F41.9 Anxiety disorder, unspecified
CPT/HCPCS: 87081; 87880; 99213; G0463